=== PATIENT | male | born 1970 | race African-American/Black ===

== ENCOUNTER 2018-03-27 17:33 | Emergency (ER) | payer OTHER ==
[~2018-03-27] VITALS: Ht 180.3 cm; Wt 92.1 kg
[~2018-03-27 17:33] MED LIST: DAYPRO600 MG PO; GLYBURIDE 5 MG T5 M1 PO; HYDROCODON-ACE1 EA12 PO; JANUVIA25 MG PO; KEFLEX250 MG PO; LEVAQUIN 500 M500 M2 PO; LORTAB 5 MG/5001 TA1 PO; NORCO 5-325 TA1 EACH PO; PERCOCET 5-3251 EACH; PERCOCET 7.5-31 EACH PO; PHENERGAN 25 MG25 M1 PO; PRILOSEC40 MG PO; TIZANIDINE; TIZANIDINE HCL4 MG PO
[2018-03-27 17:37] VITALS: BP 161/98
[2018-03-27 18:35] LABS: ABSOLUTE NEUTROPHILS 2.9 thou/uL (1.4-8.2); BASOPHILS 1.1 % (0.0-2.0); EOSINOPHILS 2.4 % (0.0-3.0); HEMOGLOBIN 14.3 gm/dL (14.0-18.0); LYMPHOCYTES 33.7 % (24.0-44.0); MCH 22.8 pg (26.0-34.0); MCHC 31.8 g/dL (28.0-37.0); MCV 71.7 fL (80.0-100.0); MONOCYTES 7.5 % (1.0-8.0); PLATELET COUNT 255 thou/uL (150-400); POLYS 55.3 % (36.0-66.0); RBC 6.27 mil/uL (4.50-6.00); WBC 5.3 thou/uL (4.0-11.0)
[2018-03-27 18:45] LABS: ANION GAP 11 mmol/L (7-16); BUN 17 mg/dL (7-18); CALCIUM 9.8 mg/dL (8.5-10.1); CHLORIDE 101 mmol/L (98-107); CO2 27 mmol/L (21-32); CREATININE 1.2 mg/dL (0.7-1.3); GLUCOSE 168 mg/dL (74-106); POTASSIUM 3.8 mmol/L (3.5-5.1); SODIUM 139 mmol/L (136-145)
[2018-03-27 18:55] LABS: ALBUMIN 4.4 g/dL (3.4-5.0); SALICYLATE < 2.8 mg/dL (2.8-20.0); SGOT 15 U/L (15-37); SGPT 23 U/L (30-65); TOTAL PROTEIN 8.7 g/dL (6.4-8.2); TROPONIN-I <0.06 ng/mL (<0.06)
[2018-03-27 20:23] LABS: ICTOTEST (BILI CONFIRMATORY) Negative (Negative); URINE BILIRUBIN NEGATIVE (Negative); URINE BLOOD NEGATIVE (Negative); URINE CLARITY CLEAR; URINE COLOR YELLOW; URINE GLUCOSE-RANDOM* 2+ (Negative); URINE KETONES 3+ (Negative); URINE LEUKOCYTES-REFLEX NEGATIVE (Negative); URINE NITRITE-REFLEX NEGATIVE (Negative); URINE PROTEIN (DIPSTICK) TRACE (Negative); URINE SPECIFIC GRAVITY > 1.030 (1.005-1.035); URINE UROBILINOGEN 0.2 E.U./dl (0.2-1.0)
[2018-03-27 20:29] LABS: AMP/METHAMP Negative (Negative); BARBITURATES Negative (Negative); BENZODIAZEPINES Negative (Negative); COCAINE Negative (Negative); METHADONE Negative (Negative); OPIATES Negative (Negative); PCP Negative (Negative)
[2018-03-27] MEDS ORDERED: FARXIGA5 MG PO (20:41)
[2018-03-27] MEDS ORDERED: METFORMIN HCL500 MG PO (20:41)
[2018-03-27] MEDS ORDERED: GLUCOTROL5 MG PO (20:41)
--- NOTE | 2018-03-27 21:06 | EKG ---
[place] [address] [facility] [place] [address] ELECTROCARDIOGRAM REPORT Name: MAISH PANTOJA EFFIE Room #: REG Zhang#: [id number] Admission: 03/27/18 Attend Phys: Discharge: Date of : 74 Report #: [id number] THIS REPORT FOR: //name// [facility] ED Test Date: 2018-03-27 Test Time: 18:05:25 Pat Name: AMISH PANTOJA Department: Room: Gender: Test Design Engineer: STEVANEdmundo : 1970 Requested By: Volodymyr Gomes Order Number: [id number] MD: Aryan Claudio Measurements Intervals [place] Rate: 114 P: 60 NC: 131 QRS: 35 QRSD: 69 T: 28 QT: 323 QTc: 445 Interpretive Statements Sinus tachycardia Probable left atrial enlargement Compared to ECG 02/22/2013 20:42:46 Sinus rhythm no longer present Sinus arrhythmia no longer present Early repolarization no longer present Electronically Signed On 03-27-2018 21:06:33 [employer] by Aryan Claudio [email or web address] <ELECTRONICALLY SIGNED> By: Aryan Claudio MD 03/27/186 04 04 Aryan Claudio MD /MARIAA
== END 2018-03-27 20:45 | disposition home or self-care (01) ==
LOC: ER 17:33
PROVIDERS: Emergency Medicine
DX: F41.9 Anxiety disorder, unspecified (principal); F45.8 Other somatoform disorders; M62.838 Other muscle spasm; E11.9 Type 2 diabetes mellitus without complications